=== PATIENT | female | born 1975 | race Hispanic/Latino ===

== ENCOUNTER 2017-07-25 13:23 | Emergency (ER) | payer SELFPAY | END 2017-07-25 15:50 | disposition left against medical advice (07) | LOC: ED 13:23 | DX: R51 Headache (principal); Z53.21 Procedure and treatment not carried out due to patient leaving prior to being seen by health care provider ==

== ENCOUNTER 2017-10-13 19:49 | Inpatient (IN) | payer SELFPAY ==
--- NOTE | 2017-10-13 20:31 | Cat Scan Report ---
FINAL REPORT PROCEDURE: CT HEAD/BRAIN WO CON TECHNIQUE: Computerized tomography of the head was performed without contrast material. HISTORY: neuro deficits < 6hrs or sx present upon awakening COMPARISON: No prior studies are available for comparison. FINDINGS: Brain: Brain density appears normal. No evidence of intracranial hemorrhage. No parenchymal hemorrhage, mass lesions or mass effect are seen. There is a CSF density nodule superolateral aspect right parietal lobe measuring 2.2 x 1.7 centimeter on image 41 series 2 suggesting an arachnoid cyst. No other abnormal extra-axial fluid collections or masses are identified. Ventricles: Ventricles are normal size and are midline. Bone Windows: No evidence of skull fracture. Paranasal sinuses: Clear Mastoid air cells: On axial image 3 series 3 there is a small amount of fluid seen in a few of the posterior inferior ethmoid air cells on the left. Visualized mastoid air cells otherwise are clear. IMPRESSION: Arachnoid cyst suspected superior lateral aspect right parietal lobe otherwise negative unenhanced CT of the brain. If symptoms persist or worsen consider follow-up CT scan or MRI for further evaluation. Small amount of fluid seen in a few of the mastoid air cells on the left as described suggesting early mastoiditis.
[2017-10-13 21:24] LABS: Basophils % (Auto) 0.8 % (0.0-1.8); Eosinophils % (Auto) 0.3 % (0.0-4.3); Hematocrit 40.7 % (30.3-42.9); Hemoglobin 14.2 gm/dl (10.1-14.3); Lymphocytes # (Auto) 1.1 K/mm3 (1.2-5.4); Mean Corpuscular HGB Conc 35 % (30-34); Mean Corpuscular Hemoglobin 29 pg (28-32); Mean Corpuscular Volume 83 fl (79-97); Monocytes # (Auto) 0.5 K/mm3 (0.0-0.8); Monocytes % (Auto) 10.6 % (0.0-7.3); Platelet Count 222 K/mm3 (140-440)
--- NOTE | 2017-10-13 21:24 | Emergency Department Report ---
HPI - General Chief Complaint: Neuro Symptoms/Deficit Time Seen by Provider: 10/13/17 21:09 - HPI HPI: 42-year-old female presents to the emergency department, dropped off by friends to be seen, with a complaint of a headache, right-sided facial droop and some right-sided weakness that has been going on since the patient woke up around 10 AM this morning. She did not come in until about 7:30 PM this evening she thought rest and relaxation might make the symptoms resolved. She has a history of migraine headaches, hypoglycemia. She has previous gastric bypass surgery. She is a tobacco smoker. She does not have a primary care physician and has not had a normal annual physical in many years. She did not take anything for her symptoms prior to presentation. ED Past Medical Hx - Past Medical History Hx Headaches / Migraines: Yes Additional medical history: Hypoglycemia - Surgical History Additional Surgical History: Gastric Bypass, Hysterectomy - Social History Smoking Status: Current Every Day Smoker Substance Use Type: None ED Review of Systems ROS: Stated complaint: MIGRAINE Other details as noted in HPI Comment: All other systems reviewed and negative Constitutional: denies: chills, fever Eyes: denies: eye pain, eye discharge, vision change ENT: denies: ear pain, throat pain Respiratory: denies: cough, shortness of breath, wheezing Cardiovascular: denies: chest pain, palpitations Gastrointestinal: denies: abdominal pain, nausea, diarrhea Genitourinary: denies: urgency, dysuria, discharge Musculoskeletal: denies: back pain, joint swelling, arthralgia Skin: denies: rash, lesions Neurological: headache, weakness, numbness Physical Exam - Physical Exam Vital Signs: Vital Signs 10/13/17 10/13/17 19:47 19:57 Temperature 98.3 F Pulse Rate 100 H Respiratory 18 Rate Blood Pressure 133/92 O2 Sat by Pulse 98 98 Oximetry Physical Exam: GENERAL: The patient is well-developed well-nourished. HENT: Normocephalic. Atraumatic. Patient has moist mucous membranes. EYES: Extraocular motions are intact. Pupils equal reactive to light bilaterally. No nystagmus. No gaze preference. NECK: Supple. Trachea is midline. CHEST/LUNGS: Clear to auscultation. There is no respiratory distress noted. HEART/CARDIOVASCULAR: Regular. There is no tachycardia. There is no murmur. ABDOMEN: Abdomen is soft, nontender. Patient has normal bowel sounds. There is no abdominal distention. SKIN: Skin is warm and dry. NEURO: The patient is awake, alert, and oriented. The patient is cooperative. There is right-sided nasolabial paresis. There is a right upper extremity drift but it does not hit the gurney. There is right lower extremity drift that does hit the gurney. Patient has subjective decreased sensation to the right arm and right leg. No significant slurred speech. MUSCULOSKELETAL: There is no tenderness or deformity. There is no evidence of acute injury. ED Course Vital Signs 10/13/17 10/13/17 19:47 19:57 Temperature 98.3 F Pulse Rate 100 H Respiratory 18 Rate Blood Pressure 133/92 O2 Sat by Pulse 98 98 Oximetry - Reevaluation(s) Reevaluation #1: 10/13/17 21:24 NIH Stroke Scale/Score (NIHSS) RESULT SUMMARY: 6 points NIH Stroke Scale INPUTS: 1A: Level of consciousness > 0 = Alert; keenly responsive 1B: Ask month and age > 0 = Both questions right 1C: 'Blink eyes' & 'squeeze hands' > 0 = Performs both tasks 2: Horizontal extraocular movements > 0 = Normal 3: Visual [place] > 0 = No visual loss 4: Facial palsy > 2 = Partial paralysis (lower face) 5A: Left arm motor drift > 0 = No drift for 10 seconds 5B: Right arm motor drift > 1 = Drift, but doesn't hit bed 6A: Left leg motor drift > 0 = No drift for 5 seconds 6B: Right leg motor drift > 2 = Drift, hits bed 7: Limb Ataxia > 0 = No ataxia 8: Sensation > 1 = Mild-moderate loss: less sharp/more dull 9: Language/aphasia > 0 = Normal; no aphasia 10: Dysarthria > 0 = Normal 11: Extinction/inattention > 0 = No abnormality - Consultations Consultation #1: 10/13/17 21:44 I spoke with the telemedicine neurologist, Dr. Jiménez, who agrees that the patient is outside of the window for TPA but does recommend CT angiography of the head and neck for further evaluation. If negative for any large vessel occlusion, patient can be admitted here for further stroke workup including MRI. ED Medical Decision Making - Lab Data Result diagrams: 10/13/17 21:12 10/13/17 21:12 - EKG Data -: EKG Interpreted by Nv EKG shows normal: sinus rhythm, axis, intervals, QRS complexes (Q waves to the septal leads), ST-T waves Rate: normal - EKG Data When compared to previous EKG there are: previous EKG unavailable Interpretation: other (sinus rhythm, normal axis, normal intervals, Q waves to the septal leads) - Radiology Data Radiology results: report reviewed PROCEDURE: CT HEAD/BRAIN WO CON TECHNIQUE: Computerized tomography of the head was performed without contrast material. HISTORY: neuro deficits lt; 6hrs or sx present upon awakening COMPARISON: No prior studies are available for comparison. FINDINGS: Brain: Brain density appears normal. No evidence of intracranial hemorrhage. No parenchymal hemorrhage, mass lesions or mass effect are seen. There is a CSF density nodule superolateral aspect right parietal lobe measuring 2.2 x 1.7 centimeter on image 41 series 2 suggesting an arachnoid cyst. No other abnormal extra-axial fluid collections or masses are identified. Ventricles: Ventricles are normal size and are midline. Bone Windows: No evidence of skull fracture. Paranasal sinuses: Clear Mastoid air cells: On axial image 3 series 3 there is a small amount of fluid seen in a few of the posterior inferior ethmoid air cells on the left. Visualized mastoid air cells otherwise are clear. IMPRESSION: Arachnoid cyst suspected superior lateral aspect right parietal lobe otherwise negative unenhanced CT of the brain. If symptoms persist or worsen consider follow-up CT scan or MRI for further evaluation. Small amount of fluid seen in a few of the mastoid air cells on the left as described suggesting early mastoiditis. Transcribed By: DFN Dictated By: SINGH MARTINEZ MD Electronically Authenticated By: SINGH MARTINEZ MD Signed Date/Time: 10/13/172022 PROCEDURE: CT ANGIO HEAD TECHNIQUE: Computerized tomographic angiography of the head was performed during the IV injection of iodinated nonionic contrast including image processing. The image data was postprocessed using 2-dimensional multiplanar reformatted (MPR) and 3-dimensional (MIP and/or volume rendered) techniques. HISTORY: CVA, right sided deficits COMPARISON: No prior studies are available for comparison. FINDINGS: There is a dominant left vertebral artery, normal variant. The vertebral arteries appear widely patent as does the basilar artery and both posterior cerebral arteries. Visualized portions of both internal carotid arteries appear widely patent. Carotid siphons, the A1 segments, the anterior cerebral arteries and middle cerebral arteries appear widely patent. There is no evidence of significant stenosis or occlusion. No changes are seen that would suggest aneurysm or vascular malformation. No abnormal enhancing lesions are identified. CSF density mass is visualized posterior lateral view of the right parietal lobe measuring 18.9 x 18.6 millimeters which appears represent an arachnoid cyst. IMPRESSION: The anterior and posterior circulation are intact. No focal abnormality is seen. Arachnoid cyst suspected periphery of the right parietal lobe as described. PROCEDURE: CT ANGIO NECK TECHNIQUE: Computerized tomographic angiography of the neck was performed after the IV injection of iodinated nonionic contrast including image processing. The image data was postprocessed using 2-dimensional multiplanar reformatted (MPR) and 3-dimensional (MIP and/or volume rendered) techniques. HISTORY: CVA, right sided deficits COMPARISON: No prior studies are available for comparison. Note: Assessment of carotid artery stenosis is based on measurement of the distal internal carotid artery diameter as the denominator for stenosis calculations and the [place] Symptomatic Carotid Endarterectomy Trial (NASCET) stenosis criteria . CPT 3100F FINDINGS: Visualized portions of the aortic arch are unremarkable. The right and left common carotid arteries, the carotid bulbs and internal carotid arteries appear widely patent. Vertebral arteries also appear widely patent. There is no stenosis or dissection visualized. There is no occlusion. IMPRESSION: Carotid and vertebral arteries are widely patent. No focal abnormality is seen. Transcribed By: MARCIE Dictated By: SINGH MARTINEZ MD Electronically Authenticated By: SINGH MARTINEZ MD Signed Date/Time: 10/13/17 1313 - Medical Decision Making This patient presents with strokelike symptoms including right-sided facial droop, right-sided weakness and some decreased sensation and/or numbness. CT of the head without contrast shows a right-sided arachnoid cyst but otherwise no signs of bleed or ischemia or any acute process. All this started upon waking at about 10 AM this morning and since the patient came in close to 8 PM she is well outside of the window for TPA. The telemedicine neurologist is in agreement with this but did recommend CT angiography of the head and neck. The CT angiography did not show any signs of any thrombus or occlusion. Patient was given aspirin. She was given some pain medication to treat her headache. Labs are mostly unremarkable and do not show any etiology of her symptoms. The patient will be admitted to the hospital for further evaluation and treatment and has been accepted for admission by the hospitalist, Dr. Bills. - Differential Diagnosis CVA, TIA, dysrhythmia, hypoglycemia, substance abuse Critical Care Time: No Critical care attestation.: If time is entered above; I have spent that time in minutes in the direct care of this critically ill patient, excluding procedure time. ED Disposition Clinical Impression: Right sided weakness, Numbness on right side, Tobacco use disorder CVA (cerebral vascular accident) Qualifiers: CVA mechanism: unspecified Qualified Code(s): I63.9 - Cerebral infarction, unspecified Disposition: DC-[id number] OP ADMIT IP TO THIS HOSP Is pt being admited?: Yes Condition: Fair Referrals: PRIMARY CARE, [Primary Care Provider] - 3-5 Days Time of Disposition: 23:01
[2017-10-13 21:34] LABS: Red Cell Distribution Width 21.1 % (13.2-15.2)
[2017-10-13 21:36] LABS: INR 0.88 (0.87-1.13)
[2017-10-13 21:37] LABS: Partial Thromboplastin Time 26.5 Sec. (24.2-36.6)
[2017-10-13 21:41] LABS: BUN/Creatinine Ratio 18; Blood Urea Nitrogen 11 mg/dL (7-17); Calcium 9.6 mg/dL (8.4-10.2); Hemolysis Index 5
[2017-10-13] MEDS ORDERED: MORPHINE IV ONE ×2 (21:43→22:54)
[2017-10-13] MEDS ORDERED: BABY ASPIRIN PO ONE (21:43)
--- NOTE | 2017-10-13 22:44 | Cat Scan Report ---
FINAL REPORT PROCEDURE: CT ANGIO HEAD TECHNIQUE: Computerized tomographic angiography of the head was performed during the IV injection of iodinated nonionic contrast including image processing. The image data was postprocessed using 2-dimensional multiplanar reformatted (MPR) and 3-dimensional (MIP and/or volume rendered) techniques. HISTORY: CVA, right sided deficits COMPARISON: No prior studies are available for comparison. FINDINGS: There is a dominant left vertebral artery, normal variant. The vertebral arteries appear widely patent as does the basilar artery and both posterior cerebral arteries. Visualized portions of both internal carotid arteries appear widely patent. Carotid siphons, the A1 segments, the anterior cerebral arteries and middle cerebral arteries appear widely patent. There is no evidence of significant stenosis or occlusion. No changes are seen that would suggest aneurysm or vascular malformation. No abnormal enhancing lesions are identified. CSF density mass is visualized posterior lateral view of the right parietal lobe measuring 18.9 x 18.6 millimeters which appears represent an arachnoid cyst. IMPRESSION: The anterior and posterior circulation are intact. No focal abnormality is seen. Arachnoid cyst suspected periphery of the right parietal lobe as described.
--- NOTE | 2017-10-13 22:50 | Cat Scan Report ---
FINAL REPORT PROCEDURE: CT ANGIO NECK TECHNIQUE: Computerized tomographic angiography of the neck was performed after the IV injection of iodinated nonionic contrast including image processing. The image data was postprocessed using 2-dimensional multiplanar reformatted (MPR) and 3-dimensional (MIP and/or volume rendered) techniques. HISTORY: CVA, right sided deficits COMPARISON: No prior studies are available for comparison. Note: Assessment of carotid artery stenosis is based on measurement of the distal internal carotid artery diameter as the denominator for stenosis calculations and the [place] Symptomatic Carotid Endarterectomy Trial (NASCET) stenosis criteria . CPT 3100F FINDINGS: Visualized portions of the aortic arch are unremarkable. The right and left common carotid arteries, the carotid bulbs and internal carotid arteries appear widely patent. Vertebral arteries also appear widely patent. There is no stenosis or dissection visualized. There is no occlusion. IMPRESSION: Carotid and vertebral arteries are widely patent. No focal abnormality is seen.
[2017-10-13] MEDS ORDERED: ZOFRAN IV ONE (22:54)
[2017-10-13] MEDS ORDERED: ZOFRAN IV PRN (23:38)
[2017-10-13] MEDS ORDERED: APRESOLINE IV PRN (23:38)
[2017-10-13] MEDS ORDERED: DULCOLAX PR PRN (23:38)
[2017-10-13] MEDS ORDERED: TYLENOL PO PRN (23:38)
[2017-10-13] MEDS ORDERED: SODIUM CHLORIDE FLUSH SYRINGE 10 ML IV PRN (23:38)
--- NOTE | 2017-10-13 23:44 | History and Physical Report ---
History of Present Illness Date of examination: 10/13/17 History of present illness: 42-year-old lady with a history of migraine comes to the emergency room with complaints of right-sided weakness. Patient states that she had headache that started on Sunday, frontal and right temporal, described as a pressure-like sensation, constant, intensity 6/10, radiating to the back of the head on the right side, also complain of photophobia. This morning around 10:00 she woke up from sleep and noticed that the right side of her face was drawn up, right side was weak and she was off balance and the right side also felt as if it will sleeping Review of systems Constitutional: no weight loss, chills, fever Ears, eyes, nose, mouth and throat: no nasal congestion, no nasal discharge, no sinus pressure, no vision change, no red eye. Neck: No neck pain or rigidity. Cardiovascular: no chest pain, palpitations Respiratory: no cough, shortness of breath Gastrointestinal: no abdominal pain hematochezia Genitourinary : no frequency , no hematuria Musculoskeletal: no joint swelling or muscle ache Integumentary: no rash, no pruritis Neurological:+parathesias, focal weakness Endocrine: no cold or heat intolerance, no polyuria or polydipsia Hematologic/Lymphatic: no easy bruising, no easy bleeding, no gland swelling Allergic/Immunologic: no urticaria, no angioedema. PAST MEDICAL HISTORY: Migraine PAST SURGICAL HISTORY: Gastric bypass, hysterectomy, plastic surgery on face, cholecystectomy SOCIAL HISTORY: No alcohol, no drugs, 1/2 pack/day FAMILY HISTORY: Hypertension Medications and Allergies Allergies Allergy/AdvReac Type Severity Reaction Status Date / Time ketorolac [From Toradol] Allergy Hives Verified 10/13/17 20:05 metoclopramide [From Reglan] Allergy Hives Verified 10/13/17 20:04 shellfish derived Allergy Itching Verified 10/13/17 20:05 Exam - Physical Exam Narrative exam: Gen. appearance: Patient lying in bed, no apparent distress HEENT: Normocephalic, atraumatic, pupils equally round and reactive to light, extraocular movement intact, and no sclericterus,. No JVD or thyromegaly or nodule,neck supple, no carotid bruit ,mucous membranes moist, no exudate or erythema Heart: S1, S2, regular rate and rhythm Lungs: Clear bilaterally, breathing comfortable Abdomen: Positive bowel sounds, non-tender, nondistended, no organomegaly Extremity:no edema cyanosis, clubbing Skin: no rash, dry, warm Neuro: Oriented 3, cranial nerves II-12 intact, speech is fluent, right upper and lower extremity 4/5 and decrease sensory on the right - Constitutional Vitals: Temp Pulse Resp BP Pulse Ox 98.2 F 78 14 123/84 99 10/13/17 23:10 10/13/17 23:10 10/13/17 23:10 10/13/17 23:10 10/13/17 23:10 Results - Labs CBC & Chem 7: 10/13/17 21:12 10/13/17 21:12 Labs: Abnormal lab results 10/13/17 10/13/17 Range/Units 21:12 21:12 MCHC 35 H (30-34) % RDW 21.1 H (13.2-15.2) % [place] % (Auto) 10.6 H (0.0-7.3) % Lymph # 1.1 L (1.2-5.4) K/mm3 Sodium 136 L (137-145) mmol/L Creatinine 0.6 L (0.7-1.2) mg/dL Glucose 103 H (65-100) mg/dL - Imaging and Cardiology CT Scan - head: report reviewed Assessment and Plan CT angio head and neck reviewed Assessment Acute CVA versus complex migraine Plan Admit to medicine Obtain MRI of the head, echo,do neuro checks Consult neurology, physical and occupational therapy Start Plavix, statin, Percocet. DVT prophylaxis
[2017-10-14] MEDS ORDERED: NORCO 5/325 ONE (01:36)
[2017-10-14] MEDS: NORCO 5/325 PO PRN ×3 (01:40→20:50)
[2017-10-14 10:43] LABS: Chol/HDL Ratio 3.74 %
--- NOTE | 2017-10-14 12:22 | Progress Note ---
Assessment and Plan Assessment and plan: Acute CVA versus complex migraine. F/U MRI of the head, echo, neuro checks Consult neurology, physical and occupational therapy Cont Plavix, statin, Percocet. DVT prophylaxis History Interval history: No new issues Hospitalist Physical - Constitutional Vitals: Temp Pulse Resp BP Pulse Ox 98.0 F 69 19 97/59 99 10/14/17 08:00 10/14/17 11:31 10/14/17 08:48 10/14/17 08:00 10/14/17 08:00 General appearance: Present: no acute distress, well-nourished - EENT Eyes: Present: PERRL, EOM intact ENT: hearing intact, clear oral mucosa, dentition normal - Neck Neck: Present: supple, normal ROM - Respiratory Respiratory effort: normal Respiratory: bilateral: CTA - Cardiovascular Rhythm: regular Heart Sounds: Present: S1 & S2. Absent: gallop, rub - Extremities Extremities: no ischemia, No edema, Full ROM - Abdominal General gastrointestinal: soft, non-tender, non-distended, normal bowel sounds - Integumentary Integumentary: Present: clear, warm, dry - Neurologic Neurologic: CNII-XII intact, moves all extremities Results - Labs CBC & Chem 7: 10/13/17 21:12 10/13/17 21:12 Labs: Laboratory Last Values WBC 4.9 K/mm3 (4.5-11.0) 10/13/17 21:12 RBC 4.90 M/mm3 (3.65-5.03) 10/13/17 21:12 Hgb 14.2 gm/dl (10.1-14.3) 10/13/17 21:12 Hct 40.7 % (30.3-42.9) 10/13/17 21:12 MCV 83 fl (79-97) 10/13/17 21:12 MCH 29 pg (28-32) 10/13/17 21:12 MCHC 35 % (30-34) H 10/13/17 21:12 RDW 21.1 % (13.2-15.2) H 10/13/17 21:12 Plt Count 222 K/mm3 (140-440) 10/13/17 21:12 Lymph % (Auto) 23.0 % (13.4-35.0) 10/13/17 21:12 [place] % (Auto) 10.6 % (0.0-7.3) H 10/13/17 21:12 Eos % (Auto) 0.3 % (0.0-4.3) 10/13/17 21:12 Baso % (Auto) 0.8 % (0.0-1.8) 10/13/17 21:12 Lymph # 1.1 K/mm3 (1.2-5.4) L 10/13/17 21:12 [place] # 0.5 K/mm3 (0.0-0.8) 10/13/17 21:12 Eos # 0.0 K/mm3 (0.0-0.4) 10/13/17 21:12 Baso # 0.0 K/mm3 (0.0-0.1) 10/13/17 21:12 Seg Neutrophils % 65.3 % (40.0-70.0) 10/13/17 21:12 Seg Neutrophils # 3.2 K/mm3 (1.8-7.7) 10/13/17 21:12 PT 12.4 Sec. (12.2-14.9) 10/13/17 21:12 INR 0.88 (0.87-1.13) 10/13/17 21:12 APTT 26.5 Sec. (24.2-36.6) 10/13/17 21:12 Thrombin Time 16.3 Sec. (15.1-19.6) 10/13/17 21:12 Sodium 136 mmol/L (137-145) L 10/13/17 21:12 Potassium 4.2 mmol/L (3.6-5.0) 10/13/17 21:12 Chloride 98.0 mmol/L (98-107) 10/13/17 21:12 Carbon Dioxide 24 mmol/L (22-30) 10/13/17 21:12 Anion Gap 18 mmol/L 10/13/17 21:12 BUN 11 mg/dL (7-17) 10/13/17 21:12 Creatinine 0.6 mg/dL (0.7-1.2) L 10/13/17 21:12 Estimated GFR > 60 ml/min 10/13/17 21:12 BUN/Creatinine Ratio 18 % 10/13/17 21:12 Glucose 103 mg/dL (65-100) H 10/13/17 21:12 POC Glucose 100 (70-105) 10/13/17 20:05 Calcium 9.6 mg/dL (8.4-10.2) 10/13/17 21:12 Troponin T < 0.010 ng/mL (0.00-0.029) 10/13/17 21:12 Triglycerides 121 mg/dL (2-149) 10/14/17 09:33 Cholesterol 217 mg/dL (50-199) H 10/14/17 09:33 LDL Cholesterol Direct 154 mg/dL (50-130) H 10/14/17 09:33 HDL Cholesterol 58 mg/dL (40-59) 10/14/17 09:33 Cholesterol/HDL Ratio 3.74 % 10/14/17 09:33 HCG, Qual Negative (Negative) 10/13/17 21:12
[2017-10-14] MEDS: PLAVIX PO SCH (14:03)
[2017-10-14] MEDS: LOVENOX SUB-Q SCH (14:03)
--- NOTE | 2017-10-14 14:49 | Magnetic Resonance Report ---
FINAL REPORT PROCEDURE: MR BRAIN WO CON TECHNIQUE: Magnetic resonance imaging of the brain was performed without contrast material. HISTORY: Evaluate stroke. Facial drooping. COMPARISON: Prior CT scan of the brain 10/13/2017 FINDINGS: There is no evidence of intracranial hemorrhage. No parenchymal hemorrhage is seen. No abnormal areas of restricted diffusion are visualize that would suggest an acute ischemic event. There is a peripheral nodular density in the posterior lateral aspect of the right parietal lobe. This measures approximately 19.6 x 17.3 millimeters. This is isointense to CSF on all sequences and is consistent with an arachnoid cyst. No significant mass effect. The ventricles are normal size and are midline. No abnormal extra-axial fluid collections are identified. There is a well-defined oval area of decreased T1 increased T2 signal with normal adjacent brain parenchyma in the inferior aspect of the left basal ganglia suggesting a prominent perivascular space. Basal ganglia otherwise are unremarkable. The signal intensity from the substance of the brain otherwise appears normal with normal garcia-white matter differentiation. The corpus callosum, the region of the pituitary fossa and foramen magnum are unremarkable. Paranasal sinuses are clear. Mastoid air cells are clear with the exception of mild increased T2 signal in a few of the mastoid air cells on the left inferiorly. Mastoid air cells on the right are clear. IMPRESSION: Benign-appearing CSF density cyst right parietal lobe as described suggesting an arachnoid cyst without mass effect. Mildly prominent perivascular space floor of the left basal ganglia. No acute intracranial abnormalities are identified. No abnormal areas restricted diffusion are seen that would suggest an acute ischemic event. Mild mastoid air cell disease on the left.
[2017-10-14] MEDS: PRAVACHOL PO SCH (22:55)
[2017-10-15] MEDS ORDERED: AMBIEN PO ONE (00:26)
[2017-10-15] MEDS: NORCO 5/325 PO PRN ×2 (04:19→12:12)
--- NOTE | 2017-10-15 09:21 | Progress Note ---
Assessment and Plan Assessment and plan: Acute CVA versus complex migraine. MRI of the head negative for acute ischemic event, echo nl, cont. neuro checks Await neurology consultation, physical and occupational therapy Cont Plavix, statin, Percocet. DVT prophylaxis History Interval history: No new issues Hospitalist Physical - Constitutional Vitals: Temp Pulse Resp BP Pulse Ox 97.9 F 62 18 91/64 99 10/15/17 07:55 10/15/17 07:55 10/15/17 07:55 10/15/17 07:55 10/15/17 07:55 General appearance: Present: no acute distress, well-nourished - EENT Eyes: Present: PERRL, EOM intact ENT: hearing intact, clear oral mucosa, dentition normal - Neck Neck: Present: supple, normal ROM - Respiratory Respiratory effort: normal Respiratory: bilateral: CTA - Cardiovascular Rhythm: regular Heart Sounds: Present: S1 & S2. Absent: gallop, rub - Extremities Extremities: no ischemia, No edema, Full ROM - Abdominal General gastrointestinal: soft, non-tender, non-distended, normal bowel sounds - Integumentary Integumentary: Present: clear, warm, dry - Neurologic Neurologic: CNII-XII intact, moves all extremities Results - Labs CBC & Chem 7: 10/13/17 21:12 10/13/17 21:12 Labs: Laboratory Last Values WBC 4.9 K/mm3 (4.5-11.0) 10/13/17 21:12 RBC 4.90 M/mm3 (3.65-5.03) 10/13/17 21:12 Hgb 14.2 gm/dl (10.1-14.3) 10/13/17 21:12 Hct 40.7 % (30.3-42.9) 10/13/17 21:12 MCV 83 fl (79-97) 10/13/17 21:12 MCH 29 pg (28-32) 10/13/17 21:12 MCHC 35 % (30-34) H 10/13/17 21:12 RDW 21.1 % (13.2-15.2) H 10/13/17 21:12 Plt Count 222 K/mm3 (140-440) 10/13/17 21:12 Lymph % (Auto) 23.0 % (13.4-35.0) 10/13/17 21:12 [place] % (Auto) 10.6 % (0.0-7.3) H 10/13/17 21:12 Eos % (Auto) 0.3 % (0.0-4.3) 10/13/17 21:12 Baso % (Auto) 0.8 % (0.0-1.8) 10/13/17 21:12 Lymph # 1.1 K/mm3 (1.2-5.4) L 10/13/17 21:12 [place] # 0.5 K/mm3 (0.0-0.8) 10/13/17 21:12 Eos # 0.0 K/mm3 (0.0-0.4) 10/13/17 21:12 Baso # 0.0 K/mm3 (0.0-0.1) 10/13/17 21:12 Seg Neutrophils % 65.3 % (40.0-70.0) 10/13/17 21:12 Seg Neutrophils # 3.2 K/mm3 (1.8-7.7) 10/13/17 21:12 PT 12.4 Sec. (12.2-14.9) 10/13/17 21:12 INR 0.88 (0.87-1.13) 10/13/17 21:12 APTT 26.5 Sec. (24.2-36.6) 10/13/17 21:12 Thrombin Time 16.3 Sec. (15.1-19.6) 10/13/17 21:12 Sodium 136 mmol/L (137-145) L 10/13/17 21:12 Potassium 4.2 mmol/L (3.6-5.0) 10/13/17 21:12 Chloride 98.0 mmol/L (98-107) 10/13/17 21:12 Carbon Dioxide 24 mmol/L (22-30) 10/13/17 21:12 Anion Gap 18 mmol/L 10/13/17 21:12 BUN 11 mg/dL (7-17) 10/13/17 21:12 Creatinine 0.6 mg/dL (0.7-1.2) L 10/13/17 21:12 Estimated GFR > 60 ml/min 10/13/17 21:12 BUN/Creatinine Ratio 18 % 10/13/17 21:12 Glucose 103 mg/dL (65-100) H 10/13/17 21:12 POC Glucose 100 (70-105) 10/13/17 20:05 Calcium 9.6 mg/dL (8.4-10.2) 10/13/17 21:12 Troponin T < 0.010 ng/mL (0.00-0.029) 10/13/17 21:12 Triglycerides 121 mg/dL (2-149) 10/14/17 09:33 Cholesterol 217 mg/dL (50-199) H 10/14/17 09:33 LDL Cholesterol Direct 154 mg/dL (50-130) H 10/14/17 09:33 HDL Cholesterol 58 mg/dL (40-59) 10/14/17 09:33 Cholesterol/HDL Ratio 3.74 % 10/14/17 09:33 HCG, Qual Negative (Negative) 10/13/17 21:12
[2017-10-15] MEDS: LOVENOX SUB-Q SCH (09:47)
[2017-10-15] MEDS: PLAVIX PO SCH (09:47)
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
[2017-10-15 18:50] LABS: Free T4 (Free Thyroxine) 1.05 ng/dL (0.76-1.46)
[2017-10-15] MEDS: PRAVACHOL PO SCH (22:32)
[2017-10-15] MEDS: ELAVIL PO SCH (22:32)
[2017-10-15] MEDS: MILK OF MAGNESIA PO PRN (22:32)
[2017-10-15] MEDS: NEURONTIN PO SCH (22:32)
[2017-10-15] MEDS: FIORICET PO PRN (22:33)
[2017-10-16] MEDS: FIORICET PO PRN ×3 (03:26→18:21)
[2017-10-16] MEDS: PROTONIX PO SCH (10:40)
[2017-10-16] MEDS: PLAVIX PO SCH (10:40)
[2017-10-16] MEDS: MILK OF MAGNESIA PO PRN (10:40)
[2017-10-16] MEDS: NEURONTIN PO SCH ×2 (10:41→20:43)
[2017-10-16] MEDS: LOVENOX SUB-Q SCH (10:41)
[2017-10-16] MEDS: NORCO 5/325 PO PRN ×2 (11:29→20:43)
[2017-10-16] MEDS ORDERED: VITAMIN B-12 IM NR (12:00)
[2017-10-16] MEDS ORDERED: IMITREX SUB-Q ONE (12:04)
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
[2017-10-16] MEDS ORDERED: ATIVAN IV ONE ×2 (13:13→16:00)
--- NOTE | 2017-10-16 13:52 | Progress Note ---
Assessment and Plan Assessment and plan: Complicated migraine. MRI neg for acute findings or stroke. Neurology following Headache has persisted Full code status History Interval history: still complain of headache Hospitalist Physical - Physical exam Narrative exam: Gen:Not in acute distress, lying in bed HEENT:Normocephalic atraumatic Neck: Supple, no JVD Lungs:clear to auscultation bilaterally, no rhonchi, no wheeze Heart:S1 and S2 reg, no murmurs, rubs or gallop Abd: Soft, non tender, non distended, normal bowel sounds Ext: No edema, clubbing or cyanosis Neuro:Awake,alert,oriented x 3, Psych:normal mood - Constitutional Vitals: Temp Pulse Resp BP Pulse Ox 98.0 F 70 18 112/73 100 10/16/17 08:08 10/16/17 09:00 10/16/17 09:59 10/16/17 08:07 10/16/17 08:07 General appearance: Present: no acute distress, well-nourished Results - Labs CBC & Chem 7: 10/13/17 21:12 10/13/17 21:12 Labs: Laboratory Last Values WBC 4.9 K/mm3 (4.5-11.0) 10/13/17 21:12 RBC 4.90 M/mm3 (3.65-5.03) 10/13/17 21:12 Hgb 14.2 gm/dl (10.1-14.3) 10/13/17 21:12 Hct 40.7 % (30.3-42.9) 10/13/17 21:12 MCV 83 fl (79-97) 10/13/17 21:12 MCH 29 pg (28-32) 10/13/17 21:12 MCHC 35 % (30-34) H 10/13/17 21:12 RDW 21.1 % (13.2-15.2) H 10/13/17 21:12 Plt Count 222 K/mm3 (140-440) 10/13/17 21:12 Lymph % (Auto) 23.0 % (13.4-35.0) 10/13/17 21:12 [place] % (Auto) 10.6 % (0.0-7.3) H 10/13/17 21:12 Eos % (Auto) 0.3 % (0.0-4.3) 10/13/17 21:12 Baso % (Auto) 0.8 % (0.0-1.8) 10/13/17 21:12 Lymph # 1.1 K/mm3 (1.2-5.4) L 10/13/17 21:12 [place] # 0.5 K/mm3 (0.0-0.8) 10/13/17 21:12 Eos # 0.0 K/mm3 (0.0-0.4) 10/13/17 21:12 Baso # 0.0 K/mm3 (0.0-0.1) 10/13/17 21:12 Seg Neutrophils % 65.3 % (40.0-70.0) 10/13/17 21:12 Seg Neutrophils # 3.2 K/mm3 (1.8-7.7) 10/13/17 21:12 PT 12.4 Sec. (12.2-14.9) 10/13/17 21:12 INR 0.88 (0.87-1.13) 10/13/17 21:12 APTT 26.5 Sec. (24.2-36.6) 10/13/17 21:12 Thrombin Time 16.3 Sec. (15.1-19.6) 10/13/17 21:12 Sodium 136 mmol/L (137-145) L 10/13/17 21:12 Potassium 4.2 mmol/L (3.6-5.0) 10/13/17 21:12 Chloride 98.0 mmol/L (98-107) 10/13/17 21:12 Carbon Dioxide 24 mmol/L (22-30) 10/13/17 21:12 Anion Gap 18 mmol/L 10/13/17 21:12 BUN 11 mg/dL (7-17) 10/13/17 21:12 Creatinine 0.6 mg/dL (0.7-1.2) L 10/13/17 21:12 Estimated GFR > 60 ml/min 10/13/17 21:12 BUN/Creatinine Ratio 18 % 10/13/17 21:12 Glucose 103 mg/dL (65-100) H 10/13/17 21:12 POC Glucose 160 (70-105) H 10/16/17 11:59 Calcium 9.6 mg/dL (8.4-10.2) 10/13/17 21:12 Troponin T < 0.010 ng/mL (0.00-0.029) 10/13/17 21:12 Triglycerides 121 mg/dL (2-149) 10/14/17 09:33 Cholesterol 217 mg/dL (50-199) H 10/14/17 09:33 LDL Cholesterol Direct 154 mg/dL (50-130) H 10/14/17 09:33 HDL Cholesterol 58 mg/dL (40-59) 10/14/17 09:33 Cholesterol/HDL Ratio 3.74 % 10/14/17 09:33 Vitamin B12 215.1 pg/mL (211-911) 10/15/17 17:52 TSH 0.998 mlU/mL (0.270-4.200) 10/15/17 17:52 Free T4 1.05 ng/dL (0.76-1.46) 10/15/17 17:52 HCG, Qual Negative (Negative) 10/13/17 21:12
--- NOTE | 2017-10-16 19:10 | Magnetic Resonance Report ---
FINAL REPORT EXAM: MR CERVICAL SPINE WO/W CON HISTORY: severe neck pain, right body numbness. R/o mass. TECHNIQUE: MRI examination of the cervical spine without and with IV contrast PRIORS: CT chest 07/15/2015 FINDINGS: Cervical cord and visualized upper portion of the thoracic cord: Normal Bone marrow edema: None Vertebral compression fracture: None Anterolisthesis: None Retrolisthesis: None Disc narrowing: C6-7 moderate Diffuse disc bulge: C5-6 slight, C6-7 moderate with slight left-sided predominance contacting the left ventral aspect of the cervical cord, C7-T1 slight Focal disc protrusion: None Central canal stenosis: C5-6 slight, C6-7 moderate Degenerative hypertrophic changes at the facet joints, uncinate joints, vertebral endplates, and disc bulge contribute to neural foraminal stenosis. Right neural foraminal stenosis: C3-4 slight to moderate, C5-6 slight to moderate Left neural foraminal stenosis: C3-4 slight, C4-5 moderate, C5-6 slight to moderate, C6-7 slight Abnormal IV contrast enhancement: None IMPRESSION: Multilevel degenerative change, disc bulge, central canal stenosis, and neural foraminal stenosis At C6-7, there is moderate disc narrowing and moderate diffuse posterior disc bulge with left-sided predominance contacting the left ventral aspect of the cervical cord. This level also demonstrates moderate central canal stenosis and left neural foraminal stenosis
[2017-10-16] MEDS: ELAVIL PO SCH (20:43)
[2017-10-16] MEDS: PRAVACHOL PO SCH (20:43)
[2017-10-17] MEDS: ELAVIL PO SCH ×2 (04:04→22:45)
[2017-10-17] MEDS: NEURONTIN PO SCH ×3 (04:04→22:44)
[2017-10-17] MEDS: PRAVACHOL PO SCH (04:04)
[2017-10-17] MEDS: FIORICET PO PRN ×2 (09:30→17:48)
[2017-10-17] MEDS: PLAVIX PO SCH (09:31)
[2017-10-17] MEDS: LOVENOX SUB-Q SCH (09:31)
[2017-10-17] MEDS: PROTONIX PO SCH (09:31)
[2017-10-17] MEDS: MILK OF MAGNESIA PO PRN (09:40)
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
--- NOTE | 2017-10-17 12:57 | Progress Note ---
Assessment and Plan Assessment and plan: Complicated migraine. MRI neg for acute findings or stroke. Neurology following Headache has persisted Cervical spine MRI shows DJD Full code status History Interval history: still complain of headaches Hospitalist Physical - Physical exam Narrative exam: Gen:Not in acute distress, lying in bed HEENT:Normocephalic atraumatic Neck: Supple, no JVD Lungs:clear to auscultation bilaterally, no rhonchi, no wheeze Heart:S1 and S2 reg, no murmurs, rubs or gallop Abd: Soft, non tender, non distended, normal bowel sounds Ext: No edema, clubbing or cyanosis Neuro:Awake,alert,oriented x 3, Psych:normal mood - Constitutional Vitals: Temp Pulse Resp BP Pulse Ox 96.2 F L 64 18 103/63 99 10/17/17 04:44 10/17/17 07:59 10/17/17 07:59 10/17/17 07:59 10/17/17 07:59 General appearance: Present: no acute distress, well-nourished Results - Labs CBC & Chem 7: 10/13/17 21:12 10/13/17 21:12 Labs: Laboratory Last Values WBC 4.9 K/mm3 (4.5-11.0) 10/13/17 21:12 RBC 4.90 M/mm3 (3.65-5.03) 10/13/17 21:12 Hgb 14.2 gm/dl (10.1-14.3) 10/13/17 21:12 Hct 40.7 % (30.3-42.9) 10/13/17 21:12 MCV 83 fl (79-97) 10/13/17 21:12 MCH 29 pg (28-32) 10/13/17 21:12 MCHC 35 % (30-34) H 10/13/17 21:12 RDW 21.1 % (13.2-15.2) H 10/13/17 21:12 Plt Count 222 K/mm3 (140-440) 10/13/17 21:12 Lymph % (Auto) 23.0 % (13.4-35.0) 10/13/17 21:12 [place] % (Auto) 10.6 % (0.0-7.3) H 10/13/17 21:12 Eos % (Auto) 0.3 % (0.0-4.3) 10/13/17 21:12 Baso % (Auto) 0.8 % (0.0-1.8) 10/13/17 21:12 Lymph # 1.1 K/mm3 (1.2-5.4) L 10/13/17 21:12 [place] # 0.5 K/mm3 (0.0-0.8) 10/13/17 21:12 Eos # 0.0 K/mm3 (0.0-0.4) 10/13/17 21:12 Baso # 0.0 K/mm3 (0.0-0.1) 10/13/17 21:12 Seg Neutrophils % 65.3 % (40.0-70.0) 10/13/17 21:12 Seg Neutrophils # 3.2 K/mm3 (1.8-7.7) 10/13/17 21:12 PT 12.4 Sec. (12.2-14.9) 10/13/17 21:12 INR 0.88 (0.87-1.13) 10/13/17 21:12 APTT 26.5 Sec. (24.2-36.6) 10/13/17 21:12 Thrombin Time 16.3 Sec. (15.1-19.6) 10/13/17 21:12 Sodium 136 mmol/L (137-145) L 10/13/17 21:12 Potassium 4.2 mmol/L (3.6-5.0) 10/13/17 21:12 Chloride 98.0 mmol/L (98-107) 10/13/17 21:12 Carbon Dioxide 24 mmol/L (22-30) 10/13/17 21:12 Anion Gap 18 mmol/L 10/13/17 21:12 BUN 11 mg/dL (7-17) 10/13/17 21:12 Creatinine 0.6 mg/dL (0.7-1.2) L 10/13/17 21:12 Estimated GFR > 60 ml/min 10/13/17 21:12 BUN/Creatinine Ratio 18 % 10/13/17 21:12 Glucose 103 mg/dL (65-100) H 10/13/17 21:12 POC Glucose 77 (70-105) 10/17/17 08:18 Calcium 9.6 mg/dL (8.4-10.2) 10/13/17 21:12 Troponin T < 0.010 ng/mL (0.00-0.029) 10/13/17 21:12 Triglycerides 121 mg/dL (2-149) 10/14/17 09:33 Cholesterol 217 mg/dL (50-199) H 10/14/17 09:33 LDL Cholesterol Direct 154 mg/dL (50-130) H 10/14/17 09:33 HDL Cholesterol 58 mg/dL (40-59) 10/14/17 09:33 Cholesterol/HDL Ratio 3.74 % 10/14/17 09:33 Vitamin B12 215.1 pg/mL (211-911) 10/15/17 17:52 TSH 0.998 mlU/mL (0.270-4.200) 10/15/17 17:52 Free T4 1.05 ng/dL (0.76-1.46) 10/15/17 17:52 HCG, Qual Negative (Negative) 10/13/17 21:12
[2017-10-17] MEDS: ZANAFLEX PO SCH ×2 (13:15→22:55)
[2017-10-17] MEDS: NORCO 5/325 PO PRN ×2 (13:16→22:45)
[2017-10-18] MEDS: ZANAFLEX PO SCH ×3 (06:25→21:13)
[2017-10-18] MEDS: PRAVACHOL PO SCH (06:26)
[2017-10-18] MEDS: PROTONIX PO SCH (09:39)
[2017-10-18] MEDS: NORCO 5/325 PO PRN ×2 (09:39→18:35)
[2017-10-18] MEDS: LOVENOX SUB-Q SCH (09:39)
[2017-10-18] MEDS: NEURONTIN PO SCH (09:40)
[2017-10-18] MEDS: PLAVIX PO SCH (09:40)
--- NOTE | 2017-10-18 12:28 | Progress Note ---
Hospitalist Physical - Constitutional Vitals: Temp Pulse Resp BP Pulse Ox 97.6 F 62 16 84/54 97 10/18/17 07:43 10/18/17 07:43 10/18/17 07:43 10/18/17 07:43 10/18/17 07:43 General appearance: Present: no acute distress, well-nourished Results - Labs CBC & Chem 7: 10/13/17 21:12 10/13/17 21:12 Labs: Laboratory Last Values WBC 4.9 K/mm3 (4.5-11.0) 10/13/17 21:12 RBC 4.90 M/mm3 (3.65-5.03) 10/13/17 21:12 Hgb 14.2 gm/dl (10.1-14.3) 10/13/17 21:12 Hct 40.7 % (30.3-42.9) 10/13/17 21:12 MCV 83 fl (79-97) 10/13/17 21:12 MCH 29 pg (28-32) 10/13/17 21:12 MCHC 35 % (30-34) H 10/13/17 21:12 RDW 21.1 % (13.2-15.2) H 10/13/17 21:12 Plt Count 222 K/mm3 (140-440) 10/13/17 21:12 Lymph % (Auto) 23.0 % (13.4-35.0) 10/13/17 21:12 [place] % (Auto) 10.6 % (0.0-7.3) H 10/13/17 21:12 Eos % (Auto) 0.3 % (0.0-4.3) 10/13/17 21:12 Baso % (Auto) 0.8 % (0.0-1.8) 10/13/17 21:12 Lymph # 1.1 K/mm3 (1.2-5.4) L 10/13/17 21:12 [place] # 0.5 K/mm3 (0.0-0.8) 10/13/17 21:12 Eos # 0.0 K/mm3 (0.0-0.4) 10/13/17 21:12 Baso # 0.0 K/mm3 (0.0-0.1) 10/13/17 21:12 Seg Neutrophils % 65.3 % (40.0-70.0) 10/13/17 21:12 Seg Neutrophils # 3.2 K/mm3 (1.8-7.7) 10/13/17 21:12 PT 12.4 Sec. (12.2-14.9) 10/13/17 21:12 INR 0.88 (0.87-1.13) 10/13/17 21:12 APTT 26.5 Sec. (24.2-36.6) 10/13/17 21:12 Thrombin Time 16.3 Sec. (15.1-19.6) 10/13/17 21:12 Sodium 136 mmol/L (137-145) L 10/13/17 21:12 Potassium 4.2 mmol/L (3.6-5.0) 10/13/17 21:12 Chloride 98.0 mmol/L (98-107) 10/13/17 21:12 Carbon Dioxide 24 mmol/L (22-30) 10/13/17 21:12 Anion Gap 18 mmol/L 10/13/17 21:12 BUN 11 mg/dL (7-17) 10/13/17 21:12 Creatinine 0.6 mg/dL (0.7-1.2) L 10/13/17 21:12 Estimated GFR > 60 ml/min 10/13/17 21:12 BUN/Creatinine Ratio 18 % 10/13/17 21:12 Glucose 103 mg/dL (65-100) H 10/13/17 21:12 POC Glucose 67 (70-105) L 10/18/17 05:59 Calcium 9.6 mg/dL (8.4-10.2) 10/13/17 21:12 Troponin T < 0.010 ng/mL (0.00-0.029) 10/13/17 21:12 Triglycerides 121 mg/dL (2-149) 10/14/17 09:33 Cholesterol 217 mg/dL (50-199) H 10/14/17 09:33 LDL Cholesterol Direct 154 mg/dL (50-130) H 10/14/17 09:33 HDL Cholesterol 58 mg/dL (40-59) 10/14/17 09:33 Cholesterol/HDL Ratio 3.74 % 10/14/17 09:33 Vitamin B12 215.1 pg/mL (211-911) 10/15/17 17:52 TSH 0.998 mlU/mL (0.270-4.200) 10/15/17 17:52 Free T4 1.05 ng/dL (0.76-1.46) 10/15/17 17:52 HCG, Qual Negative (Negative) 10/13/17 21:12
[2017-10-18] MEDS ORDERED: MIRALAX 3350 PO PRN (14:00)
[2017-10-18] MEDS: FIORICET PO PRN ×2 (14:54→21:13)
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
[2017-10-18] MEDS: ELAVIL PO SCH (21:13)
[2017-10-18] MEDS ORDERED: NEURONTIN PO SCH (22:00)
[2017-10-19] MEDS: ZANAFLEX PO SCH ×2 (03:35→14:23)
[2017-10-19] MEDS: NORCO 5/325 PO PRN ×2 (03:39→17:40)
[2017-10-19] MEDS: FIORICET PO PRN ×2 (07:56→14:22)
[2017-10-19] MEDS ORDERED: NEURONTIN PO SCH (10:00)
[2017-10-19] MEDS: PROTONIX PO SCH (11:38)
[2017-10-19] MEDS: LOVENOX SUB-Q SCH (11:38)
[2017-10-19] MEDS: PLAVIX PO SCH (11:38)
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
--- NOTE | 2017-10-19 11:45 | Discharge Summary ---
Providers - Providers Date of Admission: 10/13/17 23:38 Date of discharge: 10/19/17 Attending physician: PIPER FISH 10/13/17 Consult to Physician [CONS] Routine Comment: Consulting Provider: WARD CHEUNG Physician Instructions: Reason For Exam: cva vs complex migraine 10/13/17 23:38 Occupational Therapy Evaluate and Treat [CONS] Routine Comment: Reason For Exam: Neuro deficits Physical Therapy Evaluation and Treat [CONS] Routine Comment: Reason For Exam: Neuro deficits Primary care physician: CARE SERVICES MANAGER Hospitalization Condition: Fair Disposition: DC-01 TO HOME OR SELFCARE Core Measure Documentation - Palliative Care Palliative Care/ Comfort Measures: Not Applicable - Core Measures Any of the following diagnoses?: none Exam - Constitutional Vitals: Temp Pulse Resp BP Pulse Ox 98.2 F 60 16 93/59 98 10/19/17 07:56 10/19/17 07:56 10/19/17 07:56 10/19/17 07:56 10/19/17 07:56 Plan Activity: advance as tolerated Diet: low fat, low cholesterol, low salt Additional Instructions: 1.Follow up with PCP in 1 week. 2.Followw up with Neurosurgery at [place] in 1 week. 3.Follow up with Neurologist in 1 week Follow up with: PRIMARY CARE, [Primary Care Provider] - 3-5 Days Prescriptions: AtorvaSTATin [Lipitor] 40 mg PO QHS #30 tablet Butalb/Acetamin/Caff 50-325-40 [Fioricet] 2 tab PO Q4H PRN #30 tablet PRN Reason: Headache Famotidine [Pepcid] 20 mg PO BID #60 tablet Gabapentin [Neurontin] 600 mg PO BID 30 Days capsule HYDROcodone/APAP 5-325 [[place] 5-325 mg TAB] 1 each PO Q6H PRN #10 tablet PRN Reason: Pain, Moderate (4-6)
[2017-10-19] MEDS ORDERED: PEPCID PO SCH (14:00)
[2017-10-19 18:06] VITALS: BP 99/60
== END 2017-10-19 19:08 | disposition home or self-care (01) | DRG 103 ==
LOC: ED 19:49 → 4A 23:38
PROVIDERS: ADMIT Internal Medicine; ATTEND Internal Medicine
DX: G43.109 Migraine with aura, not intractable, without status migrainosus (principal); F17.200 Nicotine dependence, unspecified, uncomplicated; Z82.49 Family history of ischemic heart disease and other diseases of the circulatory system; Z98.84 Bariatric surgery status; Z82.3 Family history of stroke; Z91.013 Allergy to seafood; Z90.710 Acquired absence of both cervix and uterus; Z90.49 Acquired absence of other specified parts of digestive tract
CPT/HCPCS: 36415; 70450; 70496; 70498; 70551; 72156; 80048; 80061; 82607; 82962; 84439; 84443; 84484; 84703; 85025; 85610; 85670; 85730; 93005; 93010; 93306; 96374; 96375; 99406; A9270-GY; A9577; J1650; J2060; J2270; J2405; J2930; J3030; J3420; Q9967